=== PATIENT | male | born 1955 | race Caucasian/White ===

== ENCOUNTER 2020-09-24 17:35 | Emergency (ER) | payer OTHER ==
--- NOTE | 2020-09-24 18:57 | EDM.PDOC ---
ED HPI GENERAL MEDICAL PROBLEM - General Chief Complaint: Neuro Symptoms/Deficits Stated Complaint: STROKE SYMPTOMS Time Seen by Provider: 09/24/20 18:34 Source of Information: Reports: Patient History Limitations: Reports: No Limitations - History of Present Illness INITIAL COMMENTS - FREE TEXT/NARRATIVE: Mr. Sewell is a very pleasant 65-year-old gentleman who now presents to the ED with left-sided weakness. He states that he went to bed around 6:00 this morning (his last known normal), waking around 16:00 this afternoon. When he got up to go to the restroom, he fell due to left-sided weakness, cutting his right thumb (nothing serious; he applied a Band-Aid). He noticed that he had some slurred speech. He states that his symptoms completely resolved within a minute, but recurred again about 15 to 20 minutes later. The patient drove himself here, and states that he had an episode en route, however, his symptoms had completely resolved by the time he arrived, and he had no neurologic symptoms when the triage nurse evaluated him, however, his symptoms redevelop during her evaluation, and have persisted ever since. He reports extreme weakness, near paralysis, to his left upper and left lower extremity, as well as a tingling/numbness sensation to the entire left side of his body, including the left side of his head and face, torso, and upper and lower left extremities. The patient denies any other associated symptoms such as headache, blurry vision, or nausea. No prior similar symptoms. Here in the ED, the patient's initial BP is found to be mildly elevated at 159/78, otherwise, he is hemodynamically stable, afebrile, saturating 97% on room air. Prior to this afternoon, the patient denies having a recent fever, chills, sore throat, ear pain, nasal or sinus congestion, cough, dyspnea, chest pain, palpitations, nausea, vomiting, constipation, diarrhea, abdominal pain, urinary symptoms, recent weight gain or weight loss, recent bloody bowel movements or black bowel movements, recent joint aches, headaches, or rashes. The patient's PCP is Dr. Keira Carranza at the [facility]. - Related Data Allergies Allergy/AdvReac Type Severity Reaction Status Date / Time No Known Allergies Allergy Verified 09/24/20 17:47 Home Meds: Home Meds Cholecalciferol (Vitamin D3) [Vitamin D3] 2,000 units PO DAILY 09/24/20 [History] Levothyroxine [Synthroid] 50 mcg PO DAILY 09/24/20 [History] metFORMIN HCl [Metformin HCl] 1,000 mg PO DAILY 09/24/20 [History] Past Medical History Endocrine/Metabolic History: Reports: Hypothyroidism, Obesity/BMI 30+, Vitamin D Deficiency, Other (See Below) (Prediabetes) Oncologic (Cancer) History: Reports: Colon (s/p excision + CTx 2003) - Past Surgical History Musculoskeletal Surgical History: Reports: Other (See Below) (Left knee ACL repair, open) Oncologic Surgical History: Reports: Other (See Below) (Lower colon tumor excised 2003) Social & Family History - Tobacco Use Tobacco Use Status *Q: Never Tobacco User - Alcohol Use Alcohol Use History: No - Recreational Drug Use Recreational Drug Use: No - Living Situation & Occupation 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 ED EXAM, NEURO - Physical Exam Exam: See Below Exam Limited By: No Limitations General Appearance: Alert, WD/WN, No Apparent Distress Eye Exam: Bilateral Eye: EOMI, Normal Inspection Ears: Normal External Exam, Normal Canal, Hearing Grossly Normal, Normal TMs Nose: Normal Inspection, Normal Mucosa, No Blood Throat/Mouth: Normal Lips, Normal Teeth, Normal Gums, Normal Oropharynx, Normal Voice, No Airway Compromise Head Exam: Atraumatic, Normocephalic Neck: Normal Inspection, Supple, Non-Tender, Full Range of Motion Respiratory/Chest: No Respiratory Distress, Lungs Clear, Normal Breath Sounds, No Accessory Muscle Use, Chest Non-Tender Cardiovascular: Normal Peripheral Pulses, Regular Rate, Rhythm, No Gallop, No JVD, No Murmur, No Rub GI/Abdominal: Normal Bowel Sounds, Soft, Non-Tender, No Organomegaly, No Distention, No Abnormal Bruit, No Mass Neurological: Alert, Oriented x 3, Other (No involvement of the patient's left forehead when asked to raise his eyebrows. The patient is able to move his tongue to the left, however, when asked to point straight out, the tongue deviated to the right. The patient reports paresthesia to the left side of his face. Minimal ability to shrug left shoulder, while normal on the right. Virtually no ability to abduct the left arm at the shoulder, flex or extend the forearm level, or handgrip on the left, while all are normal on the right. The patient reports paresthesia to his entire left upper extremity) Back Exam: Normal Inspection, Full Range of Motion, NT Extremities: Normal Capillary Refill, Other (BLE edema, wrapped) Psychiatric: Normal Affect, Normal Mood Skin Exam: Warm, Dry, Intact, Normal Color, No Rash #1 Interpretation EKG Date: 09/24/20 Time: 17:52 Rhythm: NSR Rate (Beats/Min): 76 [place]: Normal P-Wave: Present QRS: Normal ST-T: Normal QT: Normal Comparison: NA - No Prior EKG Course - Vital Signs Last Recorded V/S: Last Vital Signs Temp 36.6 C 09/24/20 17:40 Pulse 77 09/24/20 17:40 Resp 16 09/24/20 17:40 BP 159/78 H 09/24/20 17:40 Pulse Ox 97 09/24/20 17:40 - Orders/Labs/Meds Orders: Active Orders 24 hr Category Date Time Status EKG 12 Lead [EKG Documentation Completion] [RC] STAT Care 09/24/20 18:22 Active Head wo Cont [CT] Stat Exams 09/24/20 18:11 Taken Labs: Laboratory Tests 09/24/20 09/24/20 09/24/20 Range/Units 17:50 17:55 17:55 WBC 7.23 (4.23-9.07) K/mm3 RBC 5.10 (4.63-6.08) M/mm3 Hgb 14.6 (13.7-17.5) gm/dl Hct 43.5 (40.1-51.0) % MCV 85.3 (79.0-92.2) fl MCH 28.6 (25.7-32.2) pg MCHC 33.6 (32.2-35.5) g/dl RDW Std Deviation 42.1 (35.1-43.9) fL Plt Count 182 (163-337) K/mm3 MPV 8.8 L (9.4-12.3) fl Neut % (Auto) 65.2 (34.0-67.9) % Lymph % (Auto) 21.7 L (21.8-53.1) % [place] % (Auto) 8.9 (5.3-12.2) % Eos % (Auto) 3.7 (0.8-7.0) Baso % (Auto) 0.4 (0.1-1.2) % Neut # (Auto) 4.71 (1.78-5.38) K/mm3 Lymph # (Auto) 1.57 (1.32-3.57) K/mm3 [place] # (Auto) 0.64 (0.30-0.82) K/mm3 Eos # (Auto) 0.27 (0.04-0.54) K/mm3 Baso # (Auto) 0.03 (0.01-0.08) K/mm3 PT 10.7 (9.7-12.0) SECONDS INR 1.00 Sodium (136-145) mEq/L Potassium (3.5-5.1) mEq/L Chloride (98-107) mEq/L Carbon Dioxide (21-32) mEq/L Anion Gap (5-15) BUN (7-18) mg/dL Creatinine (0.7-1.3) mg/dL Est Cr Clr Drug Dosing mL/min Estimated GFR (MDRD) (>60) mL/min BUN/Creatinine Ratio (14-18) Glucose (80-115) mg/dL POC Glucose 120 H (80-115) mg/dL Calcium (8.5-10.1) mg/dL Total Bilirubin (0.2-1.0) mg/dL AST (15-37) U/L ALT (16-63) U/L Alkaline Phosphatase (46-116) U/L Troponin I (0.00-0.056) ng/mL Total Protein (6.4-8.2) g/dl Albumin (3.4-5.0) g/dl Globulin gm/dL Albumin/Globulin Ratio (1-2) SARS CoV-2 RNA Rapid [place] (NEGATIVE) 09/24/20 09/24/20 Range/Units 17:55 19:20 WBC (4.23-9.07) K/mm3 RBC (4.63-6.08) M/mm3 Hgb (13.7-17.5) gm/dl Hct (40.1-51.0) % MCV (79.0-92.2) fl MCH (25.7-32.2) pg MCHC (32.2-35.5) g/dl RDW Std Deviation (35.1-43.9) fL Plt Count (163-337) K/mm3 MPV (9.4-12.3) fl Neut % (Auto) (34.0-67.9) % Lymph % (Auto) (21.8-53.1) % [place] % (Auto) (5.3-12.2) % Eos % (Auto) (0.8-7.0) Baso % (Auto) (0.1-1.2) % Neut # (Auto) (1.78-5.38) K/mm3 Lymph # (Auto) (1.32-3.57) K/mm3 [place] # (Auto) (0.30-0.82) K/mm3 Eos # (Auto) (0.04-0.54) K/mm3 Baso # (Auto) (0.01-0.08) K/mm3 PT (9.7-12.0) SECONDS INR Sodium 139 (136-145) mEq/L Potassium 3.8 (3.5-5.1) mEq/L Chloride 103 (98-107) mEq/L Carbon Dioxide 24 (21-32) mEq/L Anion Gap 15.8 H (5-15) BUN 18 (7-18) mg/dL Creatinine 1.2 (0.7-1.3) mg/dL Est Cr Clr Drug Dosing 59.73 mL/min Estimated GFR (MDRD) > 60 (>60) mL/min BUN/Creatinine Ratio 15.0 (14-18) Glucose 137 H (80-115) mg/dL POC Glucose (80-115) mg/dL Calcium 9.0 (8.5-10.1) mg/dL Total Bilirubin 0.6 (0.2-1.0) mg/dL AST 43 H (15-37) U/L ALT 67 H (16-63) U/L Alkaline Phosphatase 79 (46-116) U/L Troponin I < 0.017 (0.00-0.056) ng/mL Total Protein 7.1 (6.4-8.2) g/dl Albumin 3.6 (3.4-5.0) g/dl Globulin 3.5 gm/dL Albumin/Globulin Ratio 1.0 (1-2) SARS CoV-2 RNA Rapid [place] Negative (NEGATIVE) - Re-Assessments/Exams Free Text/Narrative Re-Assessment/Exam: 09/24/20 18:51 As above, the patient's known normal was when he went to bed at 6:00 this morning, with left-sided weakness to the point that he fell when he woke up around 16:00 this afternoon. His symptoms have been coming and going about every 15 to 20 minutes, with the most recent onset after he arrived here in the ED. On my examination, the patient has left-sided facial weakness that does not involve his forehead, and profound hemiparesis of his left upper and left lower extremity. He also has paresthesia of the entire left side of his body, including his face and torso. CT of the head without contrast is read by [facility] as: 1. No acute intracranial abnormality. 2. Age-appropriate atrophy. 3. No intracranial hemorrhage. Next lung no large territory acute CVA. [sic] 09/24/20 19:16 Case discussed with Aarti at [facility] at 18:56. We were disconnected, and I then spoke to Jeffery at [facility] at 18:59 and again at 19:07. Case then discussed with Dr. Louise Brooks, Neurologist at [facility], at 19:07. He stated that the patient is not a candidate for tPA due to his last known normal of 6:00 this morning, however, he may be a candidate for thrombectomy. He would like the patient transferred to their ED [facility]. He does not want me to perform a CTA here, he would prefer that it is done at their facility. He does not want me to treat the patient with any medications at this time. Jeffery spoke to Dr. Snowden, ED physician at [facility], at 19:15. Dr. Snowden accepted the patient for transfer to their ED. Weather permitting, we will transport the patient by helicopter. Due to the patient's weight (around 143 kg), a larger helicopter may be needed. Jeffery will look into which helicopter can accommodate the patient, and arrange for it. 09/24/20 19:31 CT of the head images have been pushed to [facility]. 09/24/20 19:33 Notified that a helicopter is not available, therefore the patient will be transported by fixed wing out of [place]. They will be here in about 1.5 hours. 09/24/20 20:09 The patient's swab for the SARS-CoV-2 virus returned negative. Departure - Departure Time of Disposition: 19:21 Disposition: DC/Tfer to [facility] 02 Condition: Good Clinical Impression: Left hemiparesis, Paresthesia of left upper and lower extremity - Discharge Information *PRESCRIPTION DRUG MONITORING PROGRAM REVIEWED*: Not Applicable *COPY OF PRESCRIPTION DRUG MONITORING REPORT IN PATIENT NATALI: Not Applicable Referrals: Keira Carranza MD [Primary Care Provider] - Forms: ED Department Discharge Sepsis Event Note (ED) - Evaluation Sepsis Screening Result: No Definite Risk - Focused Exam Vital Signs: Vital Signs Temp Pulse Resp BP Pulse Ox 09/24/20 17:40 36.6 C 77 16 159/78 H 97 - My Orders Last 24 Hours: My Active Orders 09/24/20 18:11 Head wo Cont [CT] Stat 09/24/20 18:22 EKG 12 Lead [EKG Documentation Completion] [RC] STAT - Assessment/Plan Last 24 Hours: My Active Orders 09/24/20 18:11 Head wo Cont [CT] Stat 09/24/20 18:22 EKG 12 Lead [EKG Documentation Completion] [RC] STAT
--- NOTE | 2020-09-25 09:27 | CT ---
"PROCEDURE INFORMATION: Exam: CT Head Without Contrast Exam date and time: 09/24/2020 6:11 PM Age: 65 years old Clinical indication: Speech disturbance and weakness, extremity and weakness, facial; Unspecified; Patient HX: Left sided weakness, left sided facial droop, speech disturbance TECHNIQUE: Imaging protocol: Computed tomography of the head without contrast. Radiation optimization: All CT scans at this facility use at least one of these dose optimization techniques: automated exposure control; mA and/or kV adjustment per patient size (includes targeted exams where dose is matched to clinical indication); or iterative reconstruction. Other technique: STROKE PROTOCOL was implemented. COMPARISON: No relevant prior studies available. FINDINGS: Brain: Mild atrophy. No hemorrhage. Unremarkable white matter. No mass effect. Cerebral ventricles: No ventriculomegaly. Bones/joints: Unremarkable. No acute fracture. Paranasal sinuses: Visualized sinuses are unremarkable. No fluid levels. Mastoid air cells: Visualized mastoid air cells are well aerated. Soft tissues: Unremarkable. IMPRESSION: 1. No acute intracranial abnormality. 2. Age-appropriate atrophy. 3. No intracranial hemorrhage. Next lung no large territory acute CVA. ASSESSMENT: ASPECTS ([place] Stroke Program Early CT Score) is 10. DIA BUCK[place] | Final Radiology Report CONFIDENTIALITY STATEMENT This report is intended only for use by the referring physician, and only in accordance with law. If you received this in error, call [phone]. Page 2 of 2 Thank you for allowing us to participate in the care of your patient. Dictated and Authenticated by: Maikel Monroy MD 09/24/2020 7:35 PM Central Time ([place] & [place]) [place]"
== END 2020-09-24 21:45 ==
LOC: JD.ED 17:35
DX: G81.94 Hemiplegia, unspecified affecting left nondominant side (principal); E66.9 Obesity, unspecified; E03.9 Hypothyroidism, unspecified; Z20.828 Contact with and (suspected) exposure to other viral communicable diseases; Z79.899 Other long term (current) drug therapy; Z68.41 Body mass index [BMI] 40.0-44.9, adult
CPT/HCPCS: 36415; 70450; 70450-26; 80053; 82962; 84484; 85025; 85610; 93005; 93010; 99285; 99285-25; U0002

== ENCOUNTER 2023-11-21 13:01 | Emergency (ER) | payer OTHER ==
[2023-11-21] MEDS ORDERED: predniSONE 20 MG Tab PO ONE (13:19)
== END 2023-11-21 15:15 | disposition home or self-care (01) ==
LOC: JD.ED 13:01
DX: G51.0 Bell's palsy (principal); E66.9 Obesity, unspecified; E03.9 Hypothyroidism, unspecified; Z79.899 Other long term (current) drug therapy; Z68.42 Body mass index [BMI] 45.0-49.9, adult
CPT/HCPCS: 99283; J7512

== ENCOUNTER 2023-12-15 12:24 | Emergency (ER) | payer MEDICARE, OTHER ==
[2023-12-15] MEDS ORDERED: Lidocaine 1% with EPINEPHrine 1:100,000 20 ML MDV INJECT ONE (12:36)
[2023-12-15] MEDS ORDERED: Diphtheria,Pertussis(Acell),Tetanus Vaccine 0.5 ML Syringe IM ONE (12:36)
== END 2023-12-15 15:55 | disposition home or self-care (01) ==
LOC: JD.ED 12:24
DX: S51.811A Laceration without foreign body of right forearm, initial encounter (principal); S80.01XA Contusion of right knee, initial encounter; E03.9 Hypothyroidism, unspecified; E66.9 Obesity, unspecified; Z79.82 Long term (current) use of aspirin; Z79.899 Other long term (current) drug therapy; Z23 Encounter for immunization; Z68.41 Body mass index [BMI] 40.0-44.9, adult; W10.8XXA Fall (on) (from) other stairs and steps, initial encounter
CPT/HCPCS: 12002; 73090-26-RT; 73090-RT; 73552-26-RT; 73552-RT; 73562-26-RT; 73562-RT; 90471; 90715; 99283; 99283-25; J3490

== ENCOUNTER 2024-02-04 07:40 | Day surgery (SDC) | payer OTHER, MEDICARE ==
[~2024-02-04 07:40] MED LIST: Sodium Chloride 0.9% 10 ML Syringe FLUSH PRN; Sodium Chloride 0.9% 10 ML Syringe FLUSH SCH
[2024-02-04] MEDS: Lactated Ringers 1,000 ML IV SCH (08:00)
[2024-02-04] MEDS ORDERED: Midazolam 1 MG/ML 2 ML SDV IVPUSH PRN ×2 (08:02→08:25)
[2024-02-04] MEDS ORDERED: Ondansetron 4 MG/2 ML SDV IVPUSH PRN (08:03)
[2024-02-04] MEDS ORDERED: HYDROmorphone 0.5 MG/0.5 ML Syringe IVPUSH PRN (08:03)
[2024-02-04] MEDS ORDERED: fentaNYL 100 MCG/2 ML SDV IVPUSH PRN (08:03)
[2024-02-04] MEDS ORDERED: Propofol 200 MG/20 ML SDV ONE (08:09)
[2024-02-04] MEDS ORDERED: Midazolam 1 MG/ML 2 ML SDV ONE (08:10)
[2024-02-04] MEDS ORDERED: fentaNYL 100 MCG/2 ML SDV ONE (08:10)
[2024-02-04] MEDS ORDERED: Ondansetron 4 MG/2 ML SDV ONE (08:12)
[2024-02-04] MEDS ORDERED: Dexamethasone 4 MG/ML 5 ML MDV ONE (08:12)
[2024-02-04] MEDS ORDERED: ceFAZolin 2 GM Vial ONE ×2 (08:13→09:09)
[2024-02-04] MEDS ORDERED: Phenylephrine 1% 10 MG/ML SDV ONE (08:13)
[2024-02-04] MEDS ORDERED: Ropivacaine 0.5% 5 MG/ML 30 ML SDV ONE (08:19)
[2024-02-04] MEDS ORDERED: Lactated Ringers 1,000 ML IV ONE (10:15)
== END 2024-02-04 12:15 | disposition home or self-care (01) ==
LOC: JD.SDS 07:40
PROVIDERS: ATTEND Orthopaedic Surgery
DX: S76.111A Strain of right quadriceps muscle, fascia and tendon, initial encounter (principal); E11.9 Type 2 diabetes mellitus without complications; E03.9 Hypothyroidism, unspecified; Z79.82 Long term (current) use of aspirin; Z79.890 Hormone replacement therapy; Z79.84 Long term (current) use of oral hypoglycemic drugs; Z79.899 Other long term (current) drug therapy; W18.30XA Fall on same level, unspecified, initial encounter
CPT/HCPCS: 01320; 76000; 76000-26; 82947; J0690; J1100; J2250; J2371; J2405; J2704; J2795; J3010; J7120